=== PATIENT | female | born 1935 | race Caucasian/White ===

== ENCOUNTER 2021-04-09 12:30 | Inpatient (IN) | payer MEDICARE, BC ==
[~2021-04-09] VITALS: Ht 175.3 cm; Wt 72.6 kg
--- NOTE | 2021-04-09 19:00 | NUR ---
RECEIVED PATIENT RESTING IN BED EASILY AROUSABLE .ADMITTED TO REHAB DX OF LEFT HIP FX D/T FALL. S/P ORIF FROM [facility].SURGICAL SITE WITH DRESSING INTACT CLEAN AND DRY. NO ACTIVE BLEEDING. PATIENT ALERT X4.ON RA.NO S/S OF DISTRESS NOTED.NICOLE CATHETER DRAINING WELL WITH CLEAR YELLOW OUTPUT. PATIENT DENIES PAIN OR DISCOMFORT AT THIS TIME. N.P LEXIS NOTIFIED OF THE ADMISSION. FALL PRECAUTION AND SAFETY MEASURES IN PLACE.CALL LIGHT WITH IN REACH.
[2021-04-09 19:35] VITALS: BP 134/49
[2021-04-09] MEDS ORDERED: Z GUARD REMEDY PASTE 57 GM TUBE TOP PRN (21:15)
[2021-04-09] MEDS ORDERED: ENOX300V4 SQ (21:49)
[2021-04-09] MEDS ORDERED: ACET-73 PO (21:49)
[2021-04-09] MEDS ORDERED: CALC-770 PO (21:49)
[2021-04-09] MEDS ORDERED: ASCO500T10 PO (21:49)
[2021-04-09] MEDS ORDERED: MULT-594 PO (21:49)
[2021-04-09] MEDS ORDERED: HYDR-3972 PO (21:49)
[2021-04-09] MEDS ORDERED: MAGN400O6 PO (21:49)
[2021-04-09] MEDS ORDERED: LORA2DIS5 IV (21:49)
[2021-04-09] MEDS ORDERED: ZINC220C6 PO (21:49)
[2021-04-09] MEDS ORDERED: PANT40TA49 PO (21:49)
[2021-04-10 04:05] VITALS: BP 141/55
--- NOTE | 2021-04-10 07:20 | NUR ---
Received patient in bed. AOx4, MODOC. On room air. No signs of acute distress. Surgical dressing clean and intact. Hackett catheter draining clear, yellow urine. Call light within reach. Bed alarm on for safety. Will continue to monitor.
[2021-04-10 08:56] VITALS: BP 134/52
[2021-04-10] MEDS ORDERED: OXYCODONE HCL 5 MG TABLET PO PRN (10:30)
[2021-04-10] MEDS: HYDROCODONE/APAP 5-325MG TABLET PO PRN ×2 (10:46→23:37)
[2021-04-10 11:43] VITALS: BP 116/48
[2021-04-10] MEDS: ZINC SULFATE 220 MG CAPSULE PO SCH (18:15)
--- NOTE | 2021-04-10 18:34 | NUR ---
No significant changes during shift. Patient AOx4. On room air. No signs of acute distress. Compliant with medications and care. Patient complained of pain, [place] PRN given and patient tolerated well. Hackett catheter draining clear, yellow urine. Needs anticipated and met. Bed locked and in low position for safety. Call light within reach. Will endorse to incoming shift for continuity of care.
--- NOTE | 2021-04-10 19:46 | NUR ---
Received in bed, sitting up in semi fowlers postion AAO X4, able to make needs known. Denies any pain or discomfort. On RA, NO SOB. Safety measures initiated. Needs assessed and met. Call light within reach.
[2021-04-10 20:00] VITALS: BP 117/44
[2021-04-10] MEDS: DOCUSATE SODIUM 100 MG CAPSULE PO SCH (20:03)
[2021-04-10] MEDS: ENOXAPARIN SODIUM 30 MG/0.3 ML DISP.SYRIN SUBCUT SCH (20:04)
[2021-04-11 04:00] VITALS: BP 143/58
[2021-04-11] MEDS: PANTOPRAZOLE SODIUM 40 MG TABLET.DR PO SCH (06:02)
--- NOTE | 2021-04-11 06:13 | NUR ---
Slept well this shift. C/O pain to left leg 8/10 one time, [place] PO provided and effective, pain decreased to 0/10. Able to make needs known. No other significant events this shift. Safety measures continued. Call light within reach.
[2021-04-11 06:50] LABS: HEMATOCRIT 29.7 % (31.2-41.9); MEAN CORPUSCULAR HEMOGLOBIN 30.1 uug (24.7-32.8); MEAN CORPUSCULAR VOLUME 90.5 fL (75.5-95.3); PLATELET COUNT (AUTO) 235 K/uL (179-408)
[2021-04-11 07:03] LABS: CREATININE 1.2 mg/dL (0.6-1.3); PHOSPHOROUS 3.5 mg/dL (2.5-4.9); POTASSIUM 4.1 mmol/L (3.5-5.1)
[2021-04-11] MEDS: DOCUSATE SODIUM 100 MG CAPSULE PO SCH ×2 (08:04→20:01)
[2021-04-11 08:33] VITALS: BP 142/53
[2021-04-11] MEDS ORDERED: AMLO5TAB4 PO (08:47)
[2021-04-11] MEDS ORDERED: PROG100C15 PO (08:47)
[2021-04-11] MEDS: AMLODIPINE 5 MG TABLET PO SCH ×2 (10:09→20:11)
[2021-04-11] MEDS: HYDROCODONE/APAP 5-325MG TABLET PO PRN (11:26)
[2021-04-11 15:16] VITALS: BP 120/45
[2021-04-11] MEDS: ZINC SULFATE 220 MG CAPSULE PO SCH (17:09)
--- NOTE | 2021-04-11 19:30 | NUR ---
Received patient in bed, sitting up reading a book. AAO x4, able to make needs know. Denies any pain. On RA, no SOB. Dressing intact to left hip/ leg, S/P ORIF. Safety measures initiated. Needs assessed and met. Call light within reach.
[2021-04-11 20:00] VITALS: BP 109/47
[2021-04-11] MEDS: ENOXAPARIN SODIUM 30 MG/0.3 ML DISP.SYRIN SUBCUT SCH (20:05)
[2021-04-11] MEDS: PROGESTERONE 100 MG PO SCH (20:29)
[2021-04-11] MEDS: [UNRECOGNIZED DRUG - OTHER] PO SCH (20:29)
[2021-04-11] MEDS ORDERED: PROGESTERONE MICRONIZED PO SCH (21:00)
[2021-04-12 04:03] VITALS: BP 147/54
--- NOTE | 2021-04-12 06:16 | NUR ---
Patient slept well. No significant events this shift. Safety measures continued. Call light within reach.
[2021-04-12] MEDS: PANTOPRAZOLE SODIUM 40 MG TABLET.DR PO SCH (06:18)
[2021-04-12] MEDS: MAGNESIUM HYDROXIDE 30 ML LIQUID UDC PO PRN ×2 (06:18→18:06)
[2021-04-12] MEDS: HYDROCODONE/APAP 5-325MG TABLET PO PRN ×2 (06:23→11:07)
[2021-04-12 07:30] VITALS: BP 140/52
[2021-04-12] MEDS: DOCUSATE SODIUM 100 MG CAPSULE PO SCH ×2 (09:17→20:25)
[2021-04-12] MEDS: MUPIROCIN 2% OINT 22 GM TUBE NS SCH ×2 (09:17→20:25)
[2021-04-12] MEDS: AMLODIPINE 5 MG TABLET PO SCH ×2 (09:17→20:36)
--- NOTE | 2021-04-12 09:53 | NUR ---
INDIVIDUALIZED PLAN OF CARE
[2021-04-12 15:39] VITALS: BP 121/47
[2021-04-12] MEDS: ZINC SULFATE 220 MG CAPSULE PO SCH (17:02)
[2021-04-12 20:00] VITALS: BP 113/47
[2021-04-12] MEDS: PROGESTERONE 100 MG PO SCH (20:25)
[2021-04-12] MEDS: [UNRECOGNIZED DRUG - OTHER] PO SCH (20:25)
[2021-04-12] MEDS: ENOXAPARIN SODIUM 30 MG/0.3 ML DISP.SYRIN SUBCUT SCH (20:33)
--- NOTE | 2021-04-12 20:48 | NUR ---
Received resident awake on bed with no respiratory distress noted. She is alert and oriented x4, able to make needs known. [facility] not given d/t to pt refusal and BP of 113/47. Denies pain and discomfort at this time. All needs attended. Call light placed within reach. Will continue to monitor.
[2021-04-13 04:00] VITALS: BP 137/56
[2021-04-13] MEDS: PANTOPRAZOLE SODIUM 40 MG TABLET.DR PO SCH (06:04)
[2021-04-13] MEDS: HYDROCODONE/APAP 5-325MG TABLET PO PRN ×2 (06:06→12:08)
[2021-04-13 08:00] VITALS: BP 129/66
[2021-04-13] MEDS ORDERED: ENSURE ENLIVE (VAN) 240 ML LIQUID PO SCH (09:00)
[2021-04-13] MEDS: AMLODIPINE 5 MG TABLET PO SCH ×2 (09:06→20:52)
[2021-04-13] MEDS: DOCUSATE SODIUM 100 MG CAPSULE PO SCH ×2 (09:06→20:51)
[2021-04-13] MEDS: MUPIROCIN 2% OINT 22 GM TUBE NS SCH ×2 (09:11→21:01)
--- NOTE | 2021-04-13 09:38 | NUR ---
RECEIVED IN BED AWAKE ALERT AND ORIENTED COOPERATIVE AND COMPLIANT WITH ALL HER MEDICATIONS BACTROBAN GIVEN ORDERED FOR MRSA NARES NICOLE CATH REMAINS INTACT WITH NO HEMATURIA LEFT HIP WITH DRESSING INTACT WITH NO DRAINAGE CASLL LIGHTS AND PERSONAL BELONGINGS ARE WITHIN EASY REACH NEW LAB ORDERS NOTED FROM DR VICK WILL CONTINUE TO OBSERVE
--- NOTE | 2021-04-13 15:00 | NUR ---
PATIENT TOLERATED PHYSICAL THERAPEUTIC EXERCISES HAD A BOWEL MOVEMENT TODAY BUT STATED WILL LIKE TO HAVE MORE PRUNE JUICE GIVE AND PATIENT INSTRUCTED THAT I COULD GIVE HER MILK OF MAGNESIA OR MIRALAX IF SHE DESIRES SHE STATED WILL LET ME KNOW IF AND WHEN SHE WANTS TO TAKE IT.
[2021-04-13 16:00] VITALS: BP 103/43
[2021-04-13] MEDS: ZINC SULFATE 220 MG CAPSULE PO SCH (17:47)
--- NOTE | 2021-04-13 18:00 | NUR ---
RESTING IN BED EATING DINNER DENIES PAIN OR DISCOMFORTS AT THIS TIME CALL LIGHTS AND PERSONAL BELONGINGS ARE WITHIN EASY REACH WILL CONTINUE TO OBSERVE.
[2021-04-13 20:22] VITALS: BP 157/50
[2021-04-13] MEDS: [UNRECOGNIZED DRUG - OTHER] PO SCH (20:54)
[2021-04-13] MEDS: PROGESTERONE 100 MG PO SCH (20:54)
--- NOTE | 2021-04-13 21:00 | NUR ---
IN BED AWAKE ALERT AND ORIENTED ON ROOM AIR WITH NO SHORTNESS OF BREATH AT THIS TIME DENIES PAIN OR DISCOMFORTS NICOLE CATH REMAINS INTACT WITH NO HEMATURIA FLUID INTAKE IS ADEQUATE DRESSING LEFT HIP IS CLEAN DRY AND INTACT CALL LIGHTS AND PERSONAL BELONGINGS ARE WITHIN EASY REACH MADE COMFORTABLE WILL CONTINUE TO OBSERVE AND PROVIDE COMFORT.
[2021-04-13] MEDS: ENOXAPARIN SODIUM 30 MG/0.3 ML DISP.SYRIN SUBCUT SCH (21:13)
[2021-04-14 04:39] VITALS: BP 137/49
[2021-04-14] MEDS: PANTOPRAZOLE SODIUM 40 MG TABLET.DR PO SCH (06:34)
[2021-04-14] MEDS: MIRALAX 17 GM POWD.PACK PO PRN (06:58)
--- NOTE | 2021-04-14 06:59 | NUR ---
MEDICATED WITH MIRALAX AT THIS TIME STATED WILL LIKE TO HAVE MORE BOWEL MOVEMENT.
[2021-04-14 07:31] VITALS: BP 105/49
[2021-04-14 07:51] LABS: MEAN CORPUSCULAR HEMOGLOBIN 29.9 uug (24.7-32.8); MEAN CORPUSCULAR VOLUME 91.3 fL (75.5-95.3); PLATELET COUNT (AUTO) 317 K/uL (179-408)
--- NOTE | 2021-04-14 08:10 | NUR ---
Pt received awake, calm on approach, on room air. Pt is A/O x 3. No distress noted. Hackett catheter is intact. Pt is requesting prn pain medication before therapy.
[2021-04-14 08:18] LABS: BILIRUBIN,TOTAL 0.6 mg/dL (0.2-1.0); CREATININE 1.3 mg/dL (0.6-1.3); PHOSPHOROUS 3.6 mg/dL (2.5-4.9); POTASSIUM 4.4 mmol/L (3.5-5.1); TOTAL PROTEIN, SERUM 6.1 g/dL (6.4-8.2)
[2021-04-14] MEDS: HYDROCODONE/APAP 5-325MG TABLET PO PRN ×2 (09:07→13:34)
[2021-04-14] MEDS: DOCUSATE SODIUM 100 MG CAPSULE PO SCH ×2 (09:14→20:44)
[2021-04-14] MEDS: AMLODIPINE 5 MG TABLET PO SCH ×2 (09:14→20:45)
[2021-04-14] MEDS: MUPIROCIN 2% OINT 22 GM TUBE NS SCH ×2 (09:17→20:44)
--- NOTE | 2021-04-14 10:32 | NUR ---
INTERDISCIPLINARY TEAM CONFERENCE
[2021-04-14 11:56] LABS: THYROID STIMULATING HORMONE 1.607 mIU/mL (0.358-3.740)
--- NOTE | 2021-04-14 14:00 | NUR ---
Hackett Catheter was removed. Pt tolerated well.
[2021-04-14 16:00] VITALS: BP 115/46
[2021-04-14] MEDS: ASCORBIC ACID 500 MG TABLET PO SCH (17:34)
[2021-04-14] MEDS: CALCIUM CITRA-VITAMIN D 315 MG-250 UNITS TABLET PO SCH (17:34)
[2021-04-14] MEDS: ZINC SULFATE 220 MG CAPSULE PO SCH (17:34)
[2021-04-14 20:05] VITALS: BP 111/40
[2021-04-14] MEDS: [UNRECOGNIZED DRUG - OTHER] PO SCH (20:45)
[2021-04-14] MEDS: PROGESTERONE 100 MG PO SCH (20:45)
[2021-04-14] MEDS: ENOXAPARIN SODIUM 30 MG/0.3 ML DISP.SYRIN SUBCUT SCH (20:56)
[2021-04-15 05:03] VITALS: BP 112/52
[2021-04-15] MEDS: PANTOPRAZOLE SODIUM 40 MG TABLET.DR PO SCH (06:13)
[2021-04-15] MEDS: MIRALAX 17 GM POWD.PACK PO PRN (06:21)
[2021-04-15 07:53] VITALS: BP 143/44
[2021-04-15] MEDS: DOCUSATE SODIUM 100 MG CAPSULE PO SCH ×2 (08:13→20:19)
[2021-04-15] MEDS: CALCIUM CITRA-VITAMIN D 315 MG-250 UNITS TABLET PO SCH ×3 (08:13→16:05)
[2021-04-15] MEDS: ASCORBIC ACID 500 MG TABLET PO SCH ×3 (08:13→16:05)
[2021-04-15] MEDS: HYDROCODONE/APAP 5-325MG TABLET PO SCH ×2 (08:13→12:28)
[2021-04-15] MEDS: AMLODIPINE 5 MG TABLET PO SCH ×2 (08:14→20:19)
[2021-04-15] MEDS: MUPIROCIN 2% OINT 22 GM TUBE NS SCH ×2 (09:11→20:22)
[2021-04-15] MEDS: ZINC SULFATE 220 MG CAPSULE PO SCH (17:07)
[2021-04-15 20:00] VITALS: BP 119/36
[2021-04-15] MEDS: [UNRECOGNIZED DRUG - OTHER] PO SCH (20:21)
[2021-04-15] MEDS: PROGESTERONE 100 MG PO SCH (20:21)
[2021-04-15] MEDS: ENOXAPARIN SODIUM 30 MG/0.3 ML DISP.SYRIN SUBCUT SCH (20:25)
[2021-04-16 04:09] VITALS: BP 129/69
[2021-04-16] MEDS: PANTOPRAZOLE SODIUM 40 MG TABLET.DR PO SCH (06:13)
[2021-04-16 07:51] VITALS: BP 117/73
[2021-04-16] MEDS: DOCUSATE SODIUM 100 MG CAPSULE PO SCH ×2 (08:48→20:18)
[2021-04-16] MEDS: ASCORBIC ACID 500 MG TABLET PO SCH ×3 (08:48→17:33)
[2021-04-16] MEDS: CALCIUM CITRA-VITAMIN D 315 MG-250 UNITS TABLET PO SCH ×3 (08:48→17:33)
[2021-04-16] MEDS: AMLODIPINE 5 MG TABLET PO SCH ×2 (08:52→20:36)
[2021-04-16] MEDS: HYDROCODONE/APAP 5-325MG TABLET PO SCH ×2 (08:59→11:41)
[2021-04-16] MEDS: MUPIROCIN 2% OINT 22 GM TUBE NS SCH ×2 (09:02→20:20)
[2021-04-16 15:18] VITALS: BP 131/46
--- NOTE | 2021-04-16 16:10 | NUR ---
Voiding adequately , continent of her bladder, compliant in calling for assist, adequate relief from her pain
--- NOTE | 2021-04-16 17:00 | NUR ---
Ambulated to the bathroom with front wheel walker , wbat. to LLE had been continent of her blader, set up with her hygiene. Had been compliant in calling for assist. interactive, making simple needs known
[2021-04-16] MEDS: ZINC SULFATE 220 MG CAPSULE PO SCH (17:33)
--- NOTE | 2021-04-16 19:30 | NUR ---
Received patient lying in bed. AAOx4. In no acute distress. Denies any SOB. Pain on left LE tolerated at this time per patient. Dressing on left LE and hip area dry, clean and intact. Needs assessed and attended to. Safety measure initiated and call light within reached.
[2021-04-16] MEDS: PROGESTERONE 100 MG PO SCH (20:18)
[2021-04-16] MEDS: [UNRECOGNIZED DRUG - OTHER] PO SCH (20:18)
[2021-04-16] MEDS: ENOXAPARIN SODIUM 30 MG/0.3 ML DISP.SYRIN SUBCUT SCH (20:36)
[2021-04-16 21:32] VITALS: BP 97/44
[2021-04-17 05:26] VITALS: BP 128/44
--- NOTE | 2021-04-17 05:33 | NUR ---
Patient slept well last night. In no acute distress. Denies any pain or SOB. Dressing on left LE and hip area remains dry, clean and intact. Needs attended to and met. Safety measure maintained and call light within reached.
[2021-04-17] MEDS: PANTOPRAZOLE SODIUM 40 MG TABLET.DR PO SCH (06:25)
[2021-04-17 08:00] VITALS: BP 129/46
[2021-04-17] MEDS: ASCORBIC ACID 500 MG TABLET PO SCH ×3 (08:25→16:21)
[2021-04-17] MEDS: DOCUSATE SODIUM 100 MG CAPSULE PO SCH ×2 (08:25→20:25)
[2021-04-17] MEDS: CALCIUM CITRA-VITAMIN D 315 MG-250 UNITS TABLET PO SCH ×3 (08:25→16:20)
[2021-04-17] MEDS: AMLODIPINE 5 MG TABLET PO SCH ×2 (08:26→20:27)
[2021-04-17] MEDS: HYDROCODONE/APAP 5-325MG TABLET PO SCH ×2 (08:26→12:21)
[2021-04-17] MEDS: MUPIROCIN 2% OINT 22 GM TUBE NS SCH ×2 (08:27→20:26)
[2021-04-17] MEDS: FERROUS GLUCONATE 324 MG TABLET PO SCH (08:27)
[2021-04-17 16:12] VITALS: BP_SYST 112; BP_DIAS 36; BP_DIAS 46
--- NOTE | 2021-04-17 16:31 | NUR ---
no events noted during shift
[2021-04-17] MEDS: ZINC SULFATE 220 MG CAPSULE PO SCH (18:33)
[2021-04-17 20:02] VITALS: BP 114/39
[2021-04-17] MEDS: [UNRECOGNIZED DRUG - OTHER] PO SCH (20:25)
[2021-04-17] MEDS: ENOXAPARIN SODIUM 30 MG/0.3 ML DISP.SYRIN SUBCUT SCH (20:25)
[2021-04-17] MEDS: PROGESTERONE 100 MG PO SCH (20:25)
--- NOTE | 2021-04-17 21:33 | NUR ---
Received patient lying in bed. AAOx4. In no apparent distress. Denies any pain or SOB. Dressing on left LE and hip area remains dry, clean and intact. Needs assessed and attended to. Safety measure initiated and call light within reached.
[2021-04-18] MEDS: HYDROCODONE/APAP 5-325MG TABLET PO PRN (02:11)
[2021-04-18 04:18] VITALS: BP 128/51
[2021-04-18] MEDS: PANTOPRAZOLE SODIUM 40 MG TABLET.DR PO SCH (06:34)
--- NOTE | 2021-04-18 07:00 | NUR ---
AAOX4. In no acute distress. Denies any SOB. Given [place] 1 tab x1 for complain of pain and effective. Dressing on left LE and hip area remains dry, clean and intact. Needs attended to and met. Safety measure maintained and call light within reached.
[2021-04-18 07:51] VITALS: BP 134/40
[2021-04-18] MEDS: ASCORBIC ACID 500 MG TABLET PO SCH ×3 (08:37→17:07)
[2021-04-18] MEDS: DOCUSATE SODIUM 100 MG CAPSULE PO SCH ×2 (08:37→20:42)
[2021-04-18] MEDS: AMLODIPINE 5 MG TABLET PO SCH ×2 (08:37→20:42)
[2021-04-18] MEDS: CALCIUM CITRA-VITAMIN D 315 MG-250 UNITS TABLET PO SCH ×3 (08:37→17:07)
[2021-04-18] MEDS: HYDROCODONE/APAP 5-325MG TABLET PO SCH ×2 (08:38→12:49)
[2021-04-18] MEDS: FERROUS GLUCONATE 324 MG TABLET PO SCH (08:40)
[2021-04-18] MEDS: MUPIROCIN 2% OINT 22 GM TUBE NS SCH ×2 (09:46→20:44)
--- NOTE | 2021-04-18 14:00 | NUR ---
AWAKE ALERT AND ORIENTED TOLERATED THERAPY ORDERED REMAIN ON ROUTINE PAIN MEDICATIONS ORDERED REFUSED PRN DOSE STATED THAT THE ROUTINE ONE IS HELPING HER ENOUGH.CALL LIGHTS AND PERSOANL BELONGINGS ARE WITHIN EASY REACH WILL CONTINUE TO OBSERVE.
[2021-04-18 16:03] VITALS: BP 112/37
[2021-04-18] MEDS: ZINC SULFATE 220 MG CAPSULE PO SCH (17:07)
--- NOTE | 2021-04-18 17:34 | NUR ---
RESTING DENIES DISCOMFORTS WILL CONTINUE TO OBSERVE.
--- NOTE | 2021-04-18 18:29 | NUR ---
DENIES PAIN OR DISCOMFORTS STATED WILL LET ME KNOW IF SHE NEEDS PAIN MEDICATIONS.
--- NOTE | 2021-04-18 19:35 | NUR ---
NSG: Received patient lying in bed, watching tv. pleasant upon approach. patient is AAO x4, able to make needs know. Denies any pain. no SOB. Dressing intact to left hip/ leg, S/P ORIF. Safety measures initiated. Needs assessed and met. Call light within reach. continue plan of care.
[2021-04-18 20:14] VITALS: BP 124/46
[2021-04-18] MEDS: PROGESTERONE 100 MG PO SCH (20:42)
[2021-04-18] MEDS: [UNRECOGNIZED DRUG - OTHER] PO SCH (20:42)
[2021-04-18] MEDS: ENOXAPARIN SODIUM 30 MG/0.3 ML DISP.SYRIN SUBCUT SCH (20:45)
[2021-04-19 04:39] VITALS: BP 133/67
[2021-04-19] MEDS: PANTOPRAZOLE SODIUM 40 MG TABLET.DR PO SCH (06:00)
--- NOTE | 2021-04-19 06:24 | NUR ---
NSG: Patient slept well throughout the night. In no acute distress. Denies pain or SOB. Dressing on left LE and hip area remains dry, clean and intact. Safety measure maintained and call light within reached.
[2021-04-19 08:00] VITALS: BP 156/79
[2021-04-19] MEDS: DOCUSATE SODIUM 100 MG CAPSULE PO SCH ×2 (08:00→20:36)
[2021-04-19] MEDS: HYDROCODONE/APAP 5-325MG TABLET PO SCH ×2 (08:01→12:16)
[2021-04-19] MEDS: ASCORBIC ACID 500 MG TABLET PO SCH ×3 (08:01→17:05)
[2021-04-19] MEDS: FERROUS GLUCONATE 324 MG TABLET PO SCH (08:01)
[2021-04-19] MEDS: CALCIUM CITRA-VITAMIN D 315 MG-250 UNITS TABLET PO SCH ×3 (08:01→17:05)
[2021-04-19] MEDS: AMLODIPINE 5 MG TABLET PO SCH ×2 (08:02→20:36)
[2021-04-19 16:18] VITALS: BP 121/40
[2021-04-19] MEDS: ZINC SULFATE 220 MG CAPSULE PO SCH (17:05)
[2021-04-19] MEDS: MIRALAX 17 GM POWD.PACK PO PRN (17:09)
[2021-04-19 20:34] VITALS: BP 120/38
[2021-04-19] MEDS: ENOXAPARIN SODIUM 30 MG/0.3 ML DISP.SYRIN SUBCUT SCH (20:40)
[2021-04-19] MEDS: [UNRECOGNIZED DRUG - OTHER] PO SCH (20:43)
[2021-04-19] MEDS: PROGESTERONE 100 MG PO SCH (20:43)
[2021-04-20 04:00] VITALS: BP 139/47
[2021-04-20] MEDS: PANTOPRAZOLE SODIUM 40 MG TABLET.DR PO SCH (06:08)
--- NOTE | 2021-04-20 06:56 | NUR ---
Pt slept throughout the night, easily arousable for care. She is alert and oriented x4, able to make needs known. On room air with no respiratory distress noted. No complaints of pain and discomfort made. Due meds given and tolerated well. All needs attended. Frequent visual checks done. Call light placed within reach. Will endorse to next shift for assistance.
[2021-04-20 08:00] VITALS: BP 143/49
[2021-04-20] MEDS: ASCORBIC ACID 500 MG TABLET PO SCH ×3 (08:34→17:11)
[2021-04-20] MEDS: CALCIUM CITRA-VITAMIN D 315 MG-250 UNITS TABLET PO SCH ×3 (08:34→17:10)
[2021-04-20] MEDS: DOCUSATE SODIUM 100 MG CAPSULE PO SCH ×2 (08:34→20:21)
[2021-04-20] MEDS: FERROUS GLUCONATE 324 MG TABLET PO SCH (08:37)
[2021-04-20] MEDS: HYDROCODONE/APAP 5-325MG TABLET PO SCH ×2 (08:37→13:18)
[2021-04-20] MEDS: AMLODIPINE 5 MG TABLET PO SCH ×2 (08:39→20:23)
[2021-04-20 16:00] VITALS: BP 111/34
[2021-04-20] MEDS: ZINC SULFATE 220 MG CAPSULE PO SCH (17:11)
[2021-04-20 20:00] VITALS: BP 113/41
[2021-04-20] MEDS: ENOXAPARIN SODIUM 30 MG/0.3 ML DISP.SYRIN SUBCUT SCH (20:21)
[2021-04-20] MEDS: PROGESTERONE 100 MG PO SCH (20:23)
[2021-04-20] MEDS: [UNRECOGNIZED DRUG - OTHER] PO SCH (20:23)
[2021-04-21 04:00] VITALS: BP 139/47
[2021-04-21] MEDS: PANTOPRAZOLE SODIUM 40 MG TABLET.DR PO SCH (05:51)
[2021-04-21 07:40] VITALS: BP 132/43
[2021-04-21] MEDS: DOCUSATE SODIUM 100 MG CAPSULE PO SCH ×2 (08:30→20:11)
[2021-04-21] MEDS: ASCORBIC ACID 500 MG TABLET PO SCH ×3 (08:30→17:47)
[2021-04-21] MEDS: AMLODIPINE 5 MG TABLET PO SCH ×2 (08:30→20:11)
[2021-04-21] MEDS: HYDROCODONE/APAP 5-325MG TABLET PO SCH ×2 (08:34→13:23)
[2021-04-21] MEDS: FERROUS GLUCONATE 324 MG TABLET PO SCH (08:34)
[2021-04-21] MEDS: CALCIUM CITRA-VITAMIN D 315 MG-250 UNITS TABLET PO SCH ×3 (09:34→17:47)
--- NOTE | 2021-04-21 11:21 | NUR ---
INTERDISCIPLINARY TEAM CONFERENCE
[2021-04-21 16:00] VITALS: BP 110/12
[2021-04-21] MEDS: ZINC SULFATE 220 MG CAPSULE PO SCH (17:48)
--- NOTE | 2021-04-21 18:38 | NUR ---
Patient remains alert, oriented x 4, not in any form of distress, on room air. She denies any pain or discomfort at this time. Patient is compliant with medications and care. Patient participated with PT and OT. Assisted with her needs promptly. Call light and frequently used items placed within patient's reach.
[2021-04-21 20:09] VITALS: BP 123/49
[2021-04-21] MEDS: ENOXAPARIN SODIUM 30 MG/0.3 ML DISP.SYRIN SUBCUT SCH (20:12)
[2021-04-21] MEDS: PROGESTERONE 100 MG PO SCH (20:19)
[2021-04-21] MEDS: [UNRECOGNIZED DRUG - OTHER] PO SCH (20:19)
[2021-04-22 04:20] VITALS: BP 109/42
[2021-04-22] MEDS: PANTOPRAZOLE SODIUM 40 MG TABLET.DR PO SCH (05:39)
--- NOTE | 2021-04-22 05:44 | NUR ---
Shift End Report: Medicated once for left hip pain with relief. No further complaint presented. Slept good after. All needs attended and met. No significant event reported. VS stable. Continue care as planned.
[2021-04-22 07:46] VITALS: BP 128/48
[2021-04-22] MEDS: AMLODIPINE 5 MG TABLET PO SCH ×2 (08:22→20:39)
[2021-04-22] MEDS: ASCORBIC ACID 500 MG TABLET PO SCH ×3 (08:23→16:58)
[2021-04-22] MEDS: HYDROCODONE/APAP 5-325MG TABLET PO SCH ×2 (08:23→12:55)
[2021-04-22] MEDS: DOCUSATE SODIUM 100 MG CAPSULE PO SCH ×2 (08:23→20:38)
[2021-04-22] MEDS: CALCIUM CITRA-VITAMIN D 315 MG-250 UNITS TABLET PO SCH ×3 (08:23→16:58)
[2021-04-22] MEDS: FERROUS GLUCONATE 324 MG TABLET PO SCH (09:17)
[2021-04-22 15:33] VITALS: BP 148/47
[2021-04-22] MEDS: ZINC SULFATE 220 MG CAPSULE PO SCH (17:01)
[2021-04-22 20:00] VITALS: BP 138/45
[2021-04-22] MEDS: ENOXAPARIN SODIUM 30 MG/0.3 ML DISP.SYRIN SUBCUT SCH (20:39)
[2021-04-22] MEDS: PROGESTERONE 100 MG PO SCH (20:41)
[2021-04-22] MEDS: [UNRECOGNIZED DRUG - OTHER] PO SCH (20:41)
[2021-04-22] MEDS: HYDROCODONE/APAP 5-325MG TABLET PO PRN (20:53)
--- NOTE | 2021-04-22 21:00 | NUR ---
PATIENT AWAKE IN BED. C/O PAIN, ASKING FOR PAIN MEDICATION. VSS. PATIENT GIVEN [place] 1 TAB PO PRN ORDERED PER MD. DRESSING NOTED TO LEFT HIP, CLEAN, DRY AND INTACT. DENIES ANY SOB. CALL LIGHT IN REACH. ALL NEEDS ATTENDED. WILL CONTINUE TO MONITOR AND ASSESS.
[2021-04-23 04:00] VITALS: BP 138/51
[2021-04-23] MEDS: PANTOPRAZOLE SODIUM 40 MG TABLET.DR PO SCH (06:03)
[2021-04-23 07:56] VITALS: BP 135/45
[2021-04-23] MEDS: AMLODIPINE 5 MG TABLET PO SCH ×2 (08:00→20:15)
[2021-04-23] MEDS: ASCORBIC ACID 500 MG TABLET PO SCH ×3 (08:00→16:07)
[2021-04-23] MEDS: DOCUSATE SODIUM 100 MG CAPSULE PO SCH ×2 (08:00→20:42)
[2021-04-23] MEDS: CALCIUM CITRA-VITAMIN D 315 MG-250 UNITS TABLET PO SCH ×3 (08:00→16:07)
[2021-04-23] MEDS: HYDROCODONE/APAP 5-325MG TABLET PO SCH ×2 (08:00→12:08)
[2021-04-23] MEDS: FERROUS GLUCONATE 324 MG TABLET PO SCH (08:03)
--- NOTE | 2021-04-23 11:58 | NUR ---
dressing change per md orders no redness or drainage noted
[2021-04-23 15:26] VITALS: BP 104/43
[2021-04-23] MEDS: ZINC SULFATE 220 MG CAPSULE PO SCH (17:23)
[2021-04-23] MEDS: [UNRECOGNIZED DRUG - OTHER] PO SCH (20:15)
[2021-04-23] MEDS: PROGESTERONE 100 MG PO SCH (20:15)
[2021-04-23] MEDS: ENOXAPARIN SODIUM 30 MG/0.3 ML DISP.SYRIN SUBCUT SCH (20:21)
[2021-04-23 20:35] VITALS: BP 119/51
[2021-04-24 05:10] VITALS: BP 145/49
[2021-04-24] MEDS: PANTOPRAZOLE SODIUM 40 MG TABLET.DR PO SCH (06:02)
[2021-04-24] MEDS: CALCIUM CITRA-VITAMIN D 315 MG-250 UNITS TABLET PO SCH ×3 (08:00→16:21)
[2021-04-24] MEDS: HYDROCODONE/APAP 5-325MG TABLET PO SCH ×2 (08:00→12:34)
[2021-04-24] MEDS: AMLODIPINE 5 MG TABLET PO SCH ×2 (08:00→20:01)
[2021-04-24] MEDS: DOCUSATE SODIUM 100 MG CAPSULE PO SCH ×2 (08:00→20:03)
[2021-04-24] MEDS: ASCORBIC ACID 500 MG TABLET PO SCH ×3 (08:00→16:21)
[2021-04-24 08:30] VITALS: BP 150/56
[2021-04-24] MEDS: FERROUS GLUCONATE 324 MG TABLET PO SCH (08:52)
[2021-04-24 11:57] VITALS: BP 120/64
[2021-04-24 16:00] VITALS: BP 132/49
[2021-04-24] MEDS: ENSURE ENLIVE (VAN) 240 ML LIQUID PO SCH (17:00)
[2021-04-24] MEDS: PROTEIN SUPPLEMENT (PROSTAT) 30 ML LIQUID PO SCH (17:00)
[2021-04-24] MEDS: ZINC SULFATE 220 MG CAPSULE PO SCH (18:19)
[2021-04-24 20:00] VITALS: BP 117/42
[2021-04-24] MEDS: [UNRECOGNIZED DRUG - OTHER] PO SCH (20:01)
[2021-04-24] MEDS: PROGESTERONE 100 MG PO SCH (20:01)
[2021-04-24] MEDS: ENOXAPARIN SODIUM 30 MG/0.3 ML DISP.SYRIN SUBCUT SCH (20:03)
[2021-04-25] MEDS: HYDROCODONE/APAP 5-325MG TABLET PO PRN (00:47)
[2021-04-25 04:00] VITALS: BP 151/61
[2021-04-25] MEDS: PANTOPRAZOLE SODIUM 40 MG TABLET.DR PO SCH (06:02)
[2021-04-25] MEDS: FERROUS GLUCONATE 324 MG TABLET PO SCH (08:10)
[2021-04-25] MEDS: CALCIUM CITRA-VITAMIN D 315 MG-250 UNITS TABLET PO SCH ×3 (08:10→16:56)
[2021-04-25] MEDS: ASCORBIC ACID 500 MG TABLET PO SCH ×3 (08:10→16:56)
[2021-04-25] MEDS: DOCUSATE SODIUM 100 MG CAPSULE PO SCH ×3 (08:10→20:39)
[2021-04-25] MEDS: HYDROCODONE/APAP 5-325MG TABLET PO SCH ×2 (08:10→13:25)
[2021-04-25 08:13] VITALS: BP 105/55
[2021-04-25] MEDS: AMLODIPINE 5 MG TABLET PO SCH ×2 (08:13→20:35)
[2021-04-25] MEDS: ENSURE ENLIVE (VAN) 240 ML LIQUID PO SCH ×2 (08:14→16:56)
[2021-04-25] MEDS: PROTEIN SUPPLEMENT (PROSTAT) 30 ML LIQUID PO SCH ×2 (08:25→16:56)
[2021-04-25 15:50] VITALS: BP 124/45
[2021-04-25] MEDS: ZINC SULFATE 220 MG CAPSULE PO SCH (17:03)
[2021-04-25 20:24] VITALS: BP 110/50
[2021-04-25] MEDS: PROGESTERONE 100 MG PO SCH (20:35)
[2021-04-25] MEDS: [UNRECOGNIZED DRUG - OTHER] PO SCH (20:35)
[2021-04-25] MEDS: ENOXAPARIN SODIUM 30 MG/0.3 ML DISP.SYRIN SUBCUT SCH (20:36)
[2021-04-26 04:30] VITALS: BP 124/58
[2021-04-26] MEDS: PANTOPRAZOLE SODIUM 40 MG TABLET.DR PO SCH (05:39)
[2021-04-26 07:30] VITALS: BP 154/66
[2021-04-26] MEDS: ENSURE ENLIVE (VAN) 240 ML LIQUID PO SCH (08:00)
[2021-04-26] MEDS: ASCORBIC ACID 500 MG TABLET PO SCH ×2 (08:03→13:17)
[2021-04-26] MEDS: CALCIUM CITRA-VITAMIN D 315 MG-250 UNITS TABLET PO SCH ×2 (08:03→13:17)
[2021-04-26] MEDS: HYDROCODONE/APAP 5-325MG TABLET PO SCH ×2 (08:03→13:25)
[2021-04-26] MEDS: AMLODIPINE 5 MG TABLET PO SCH (08:10)
[2021-04-26] MEDS: FERROUS GLUCONATE 324 MG TABLET PO SCH (08:10)
[2021-04-26] MEDS: PROTEIN SUPPLEMENT (PROSTAT) 30 ML LIQUID PO SCH (08:18)
[2021-04-26] MEDS: DOCUSATE SODIUM 100 MG CAPSULE PO SCH (08:22)
--- NOTE | 2021-04-26 13:36 | NUR ---
Patient seen by Dr. Ferrera, update given to MD and MD ordered discharge to home with home health for PT, OT and nursing services. Patient is aware and agreeable.
[2021-04-26 14:30] VITALS: BP 139/56
--- NOTE | 2021-04-26 15:01 | NUR ---
Discharge instructions provided to the patient with verbalized understanding. Discharge papers signed by and given to the patient including prescription and CD of x-ray of left hip for follow up appointment. She remains alert, oriented x 4, not in any form of distress, on room air. Surgical incision is well coaptated, no redness, no bleeding or any discharges. Vital signs stable. Patient is ambulatory with walker. She denies any pain or discomfort at this time. Assisted with her needs. All belongings well accounted for. Assisted patient to the lobby via wheelchair. Patient picked up by her son Jack Howard via private car.
== END 2021-04-26 15:00 | disposition home health service (06) | DRG 559 ==
PROVIDERS: ADMIT Physical Medicine & Rehabilitation Pain Medicine; ATTEND Physical Medicine & Rehabilitation Pain Medicine
DX: S72.142D Displaced intertrochanteric fracture of left femur, subsequent encounter for closed fracture with routine healing (principal); N17.0 Acute kidney failure with tubular necrosis; D68.59 Other primary thrombophilia; S72.122D Displaced fracture of lesser trochanter of left femur, subsequent encounter for closed fracture with routine healing; D64.9 Anemia, unspecified; W18.30XD Fall on same level, unspecified, subsequent encounter; H91.90 Unspecified hearing loss, unspecified ear; I10 Essential (primary) hypertension; E78.5 Hyperlipidemia, unspecified; I25.10 Atherosclerotic heart disease of native coronary artery without angina pectoris; M85.80 Other specified disorders of bone density and structure, unspecified site; Z79.899 Other long term (current) drug therapy; Z85.3 Personal history of malignant neoplasm of breast; Z90.13 Acquired absence of bilateral breasts and nipples; Z90.710 Acquired absence of both cervix and uterus; Z91.012 Allergy to eggs; Z91.011 Allergy to milk products; Z90.49 Acquired absence of other specified parts of digestive tract; D50.9 Iron deficiency anemia, unspecified; M19.90 Unspecified osteoarthritis, unspecified site; R26.9 Unspecified abnormalities of gait and mobility; R53.1 Weakness
CPT/HCPCS: 36415; 73501; 83550; 84100; 84443; 85025; 97161; J1650